=== PATIENT | male | born 1975 | race Caucasian/White ===

== ENCOUNTER → 2018-02-20 | Outpatient (REF) | payer BC, OTHER ==
[2018-02-20 14:10] LABS: APPEARANCE, URINE CLEAR (CLEAR); BACTERIA, URINE AUTO NEGATIVE (NEGATIVE); BILIRUBIN, URINE AUTO NEGATIVE (NEGATIVE); BLOOD, URINE BLOOD 1+ (NEGATIVE); COLOR, URINE YELLOW (YELLOW); GLUCOSE, URINE (UA) AUTO NEGATIVE (NEGATIVE); KETONE, URINE AUTO NEGATIVE (NEGATIVE); LEUKOCYTE ESTERASE, URINE AUTO NEGATIVE (NEGATIVE); MUCUS, URINE SMALL (NEGATIVE); NITRITE, URINE AUTO NEGATIVE (NEGATIVE); PROTEIN, URINE AUTO NEGATIVE (NEGATIVE); RBC, URINE AUTO 0 /HPF (0-3); SPECIFIC GRAVITY URINE AUTO 1.021 (1.002-1.035); SQUAMOUS EPITHELIAL CELL UR AU 0 /HPF (0-6); UROBILINOGEN, URINE AUTO 0.2 mg/dL (0.0-2.0); WBC, URINE AUTO 0 /HPF (0-3)
== END ==
LOC: M SMT 13:40
DX: R31.9 Hematuria, unspecified (principal)
CPT/HCPCS: 81001

== ENCOUNTER 2018-05-19 21:32 | Emergency (ER) | payer OTHER ==
[~2018-05-19] VITALS: Ht 195.6 cm; Wt 134.1 kg
[2018-05-19] MEDS ORDERED: LISI-542 (21:41)
[2018-05-19] MEDS ORDERED: VITA200016 PO (21:41)
[2018-05-19] MEDS ORDERED: ALLO100T (21:41)
[2018-05-19] MEDS ORDERED: NAPR-885 (21:41)
[2018-05-19] MEDS ORDERED: CITA10TA5 (21:41)
[2018-05-19] MEDS ORDERED: METF500T13 (21:41)
[2018-05-19] MEDS ORDERED: LEVO500T3 (21:41)
[2018-05-19] MEDS ORDERED: PANT40TA3 (21:41)
[2018-05-19] MEDS ORDERED: MUPI2OI (21:41)
[2018-05-19] MEDS ORDERED: NS 1,000 ML IV ONE ×2 (22:15→23:15)
[2018-05-19] MEDS ORDERED: ONDANSETRON 4MG/2ML VIAL (J2405) IV ONE (22:15)
[2018-05-19 22:25] LABS: BASO % 0.2 % (0.0-1.0); EOS # 0.1 10^3/uL (0.0-0.50); EOS % 0.9 % (0.0-3.0); HEMATOCRIT 42.7 % (42.0-52.0); HEMOGLOBIN 14.3 g/dl (13.5-17.5); LYMPH # 0.6 10^3/uL (1.5-4.5); LYMPH % 6.1 % (24.0-44.0); MEAN CORPUSCULAR HEMOGLOBIN 27.4 pg (27.0-33.0); MEAN CORPUSCULAR HGB CONC 33.5 g/dl (32.0-36.5); MEAN CORPUSCULAR VOLUME 81.8 fl (80.0-96.0); MONO # 0.5 10^3/uL (0.0-0.8); MONO % 5.8 % (0.0-5.0); NEUTROPHILS # 7.9 10^3/uL (1.8-7.7); NEUTROPHILS % 86.8 % (36.0-66.0); PLATELET COUNT, AUTOMATED 205 10^3/uL (150-450); RED BLOOD COUNT 5.22 10^6/uL (4.30-6.10); WHITE BLOOD COUNT 9.1 10^3/uL (4.0-10.0)
[2018-05-19 22:51] LABS: ALBUMIN 3.7 GM/DL (3.2-5.2); ALT/SGPT 39 U/L (12-78); BILIRUBIN,DIRECT 0.1 MG/DL (0.0-0.2); BILIRUBIN,TOTAL 0.7 MG/DL (0.2-1.0); BLOOD UREA NITROGEN 18 MG/DL (7-18); CALCIUM LEVEL 8.4 MG/DL (8.5-10.1); CARBON DIOXIDE LEVEL 24 MEQ/L (21-32); CHLORIDE LEVEL 103 MEQ/L (98-107); CREATININE FOR GFR 0.95 MG/DL (0.70-1.30); GLOMERULAR FILTRATION RATE > 60.0 (>60); GLUCOSE, FASTING 139 MG/DL (70-100); LIPASE 78 U/L (73-393); POTASSIUM SERUM 4.1 MEQ/L (3.5-5.1); SODIUM LEVEL 137 MEQ/L (136-145); TOTAL PROTEIN 7.3 GM/DL (6.4-8.2)
[2018-05-19] MEDS ORDERED: ISOVUE-370 76% 100ML VIAL (Q9967) As Ordered ONE (23:03)
[2018-05-19 23:18] LABS: C REACTIVE PROTEIN QUANTITATIV 1.57 MG/DL (0.00-0.30)
[2018-05-19 23:28] LABS: ERYTHROCYTE SEDIMENTATION RATE 11 mm/hr (0-15)
--- NOTE | 2018-05-20 00:16 | REPVR ---
EXAM: CT Abdomen With Contrast EXAM DATE/TIME: 05/19/2018 10:59 PM CLINICAL HISTORY: 42 years old, male; Pain; Abdominal pain; Generalized; Additional info: Abd pain, eval for divertic TECHNIQUE: Axial computed tomography images of the abdomen with intravenous contrast. All CT scans at this facility use at least one of these dose optimization techniques: automated exposure control; mA and/or kV adjustment per patient size (includes targeted exams where dose is matched to clinical indication); or iterative reconstruction. Coronal and sagittal reformatted images were created and reviewed. CONTRAST: 100 ml of iso administered intravenously. COMPARISON: CT ABD PELVIS W/O CONTRAST 12/25/2013 12:17 PM FINDINGS: Lower thorax: Minimal bilateral lower lobe dependent atelectasis. Liver: There is fatty infiltration of the liver. Gallbladder and bile ducts: Normal. No calcified stones. No ductal dilation. Pancreas: Normal. No ductal dilation. Spleen: Normal. No splenomegaly. Adrenals: Normal. No mass. Kidneys and ureters: Nonobstructing left renal calculi measuring up to 6 mm. There is a right renal cyst measuring 11 mm. Stomach and bowel: Normal. No obstruction. No mucosal thickening. Appendix: A normal appendix is seen. Intraperitoneal space: Unremarkable. No free air. No significant fluid collection. Bones/joints: Unremarkable.No acute fracture. No dislocation. Soft tissues: Unremarkable. Vasculature: Unremarkable. No abdominal aortic aneurysm. Lymph nodes: Unremarkable. No enlarged lymph nodes. IMPRESSION: 1. Resolution of distal left ureteral calculus and obstructive uropathy since 12/25/2013. 2. Nonobstructing left renal calculi. 3. Fatty infiltration of the liver. Electronically signed by: Jose Akers On 05/20/2018 00:15:48 AM
[2018-05-20] MEDS ORDERED: ZOFR4TAB14 PO (00:21)
[2018-05-20 00:36] VITALS: BP 124/71
== END 2018-05-20 00:38 | disposition home or self-care (01) ==
LOC: M ED 21:32
DX: A08.4 Viral intestinal infection, unspecified (principal); R74.0 Nonspecific elevation of levels of transaminase and lactic acid dehydrogenase [LDH]; E11.9 Type 2 diabetes mellitus without complications; Z88.0 Allergy status to penicillin; Z79.899 Other long term (current) drug therapy; Z79.2 Long term (current) use of antibiotics; Z79.84 Long term (current) use of oral hypoglycemic drugs; Z79.1 Long term (current) use of non-steroidal anti-inflammatories (NSAID)
CPT/HCPCS: 36415; 74160; 80048; 80076; 83605; 83690; 85025; 85652; 86140; 96374; 99284; J2405; Q9967

== ENCOUNTER → 2019-08-26 | Outpatient (CLI) | payer BC ==
[~2019-08-26] MED LIST: ALLO100T; CITA10TA5; LEVO500T3; LISI-542; METF500T13; MUPI2OI; NAPR-885; PANT40TA3; VITA200016 PO; ZOFR4TAB14 PO
== END ==
LOC: M LAB 09:21
PROVIDERS: ATTEND Urology
DX: N40.0 Benign prostatic hyperplasia without lower urinary tract symptoms (principal)
CPT/HCPCS: 36415; 84403; G0103

== ENCOUNTER → 2019-08-26 | Outpatient (CLI) | payer BC ==
--- NOTE | 2019-08-26 10:22 | REP ---
SCROTAL ULTRASOUND: Real-time sonographic evaluation of the scrotum and contents performed. Testicles are normal in size and echotexture, right testicle measuring 5.9 x 3.0 x 3.9 cm and left testicle 5.7 x 2.8 x 3.6 cm. There is no testicular mass or torsion. Blood flow is seen in each testicle with duplex Doppler evaluation. Epididymis is unremarkable bilaterally. There is no hydrocele. IMPRESSION: Negative scrotal ultrasound. Electronically Signed by Jack Kerr MD 08/26/2019 12:43 P
== END ==
LOC: M RAD 09:30
PROVIDERS: ATTEND Urology
DX: N40.0 Benign prostatic hyperplasia without lower urinary tract symptoms (principal); N50.812 Left testicular pain

== ENCOUNTER → 2020-10-06 | Outpatient (CLI) | payer BC ==
[~2020-10-06] MED LIST changes: -LISI-542; +LISI-898; +PANT40TA29; -PANT40TA3
--- NOTE | 2020-10-06 09:48 | REPPI ---
INDICATION: M79.672 PAIN IN LEFT FOOT COMPARISON: None. TECHNIQUE: AP, lateral, bilateral oblique views left foot. FINDINGS: Osseous structures and joint spaces are essentially age-appropriate and without acute fracture or dislocation. No overt osteoarthritic changes. Lateral view demonstrates small calcaneal heel spur. The soft tissues are grossly unremarkable although a 2 mm inez/foreign body underlying the mid calcaneus identified on lateral and oblique views may represent the soft tissue abnormality. IMPRESSION: Generalized age-related changes.. Lateral view cannot exclude a small 2 mm foreign body in the soft tissue underlying the calcaneus and should be correlated with point of tenderness. <Electronically signed by Fausto Taylor > 10/06/20 [id number]
== END ==
LOC: M PLAIMG 09:26
PROVIDERS: ATTEND Physician Assistant
DX: M79.672 Pain in left foot (principal)

== ENCOUNTER 2020-11-04 10:56 | Emergency (ER) | payer BC ==
[~2020-11-04] VITALS: Ht 195.6 cm; Wt 127.0 kg
[2020-11-04] MEDS ORDERED: FARX1TAB3 PO (11:21)
--- NOTE | 2020-11-04 12:12 | REP ---
INDICATION: abdominal pain COMPARISON: Comparison CT study May 19, 2018.. TECHNIQUE: Helical scanning is acquired and 3 mm axial images were reformatted. Coronal and sagittal MPR images were generated and reviewed. FINDINGS: Preliminary digital ship surveyor radiograph show an unremarkable bowel gas pattern. The lung bases are free of infiltrate. There is no evidence of pleural effusion. There are stable small subpleural subcentimeter pulmonary nodules bilaterally unchanged from the 2018 study. There is moderate diffuse fatty infiltration of the liver. Liver is not felt to be enlarged. The spleen is normal in size. No focal hepatic or splenic lesion is seen. Normal adrenal glands are seen bilaterally. No abnormality is noted within the pancreas. The gallbladder is unremarkable. There is no evidence of hydronephrosis on either side. There is an intrarenal calculus in the lower pole of the left kidney measuring 7 mm. There is no evidence of bladder or ureteral calculus. No intrarenal calculus is noted on the right. Normal caliber abdominal aorta. A normal appendix is seen in the right lower quadrant. Small and large bowel loops are unremarkable. There are scattered normal sized small bowel mesenteric lymph nodes. No evidence of gastrointestinal obstruction. Bone window settings show no bony destructive lesion. IMPRESSION: Moderate diffuse fatty infiltration of the liver. There is a nonobstructive intrarenal calculus in the lower pole left kidney which measures 7 mm. No hydronephrosis is seen. Otherwise negative. <Electronically signed by Demian Anne > 11/04/20 [id number]
[2020-11-04] MEDS ORDERED: KETOROLAC 30 MG/ML 1ML VIAL IV ONE (12:30)
[2020-11-04 12:32] LABS: BASO % 0.6 % (0.0-1.0); EOS # 0.3 10^3/uL (0.0-0.5); EOS % 4.3 % (0.0-3.0); HEMATOCRIT 45.8 % (42.0-52.0); HEMOGLOBIN 14.7 g/dl (13.5-17.5); LYMPH # 1.7 10^3/uL (1.5-5.0); LYMPH % 26.5 % (24.0-44.0); MEAN CORPUSCULAR HEMOGLOBIN 26.9 pg (27.0-33.0); MEAN CORPUSCULAR HGB CONC 32.1 g/dl (32.0-36.5); MEAN CORPUSCULAR VOLUME 83.7 fl (80.0-96.0); MONO # 0.5 10^3/uL (0.0-0.8); MONO % 8.2 % (2.0-8.0); NEUTROPHILS # 3.8 10^3/uL (1.5-8.5); NEUTROPHILS % 60.1 % (36.0-66.0); PLATELET COUNT, AUTOMATED 249 10^3/uL (150-450); RED BLOOD COUNT 5.47 10^6/uL (4.30-6.10); WHITE BLOOD COUNT 6.3 10^3/uL (4.0-10.0)
[2020-11-04] MEDS ORDERED: NS 500 ML IV ONE (13:05)
[2020-11-04] MEDS ORDERED: PERCOCET 5MG/325MG TAB PO ONE (13:30)
[2020-11-04] MEDS ORDERED: PERC5TAB12 PO (13:50)
[2020-11-04] MEDS ORDERED: METH-1164 PO (13:52)
[2020-11-04 14:18] VITALS: BP 134/77
== END 2020-11-04 14:22 | disposition home or self-care (01) ==
LOC: M ED 10:56
DX: N20.9 Urinary calculus, unspecified (principal); M54.9 Dorsalgia, unspecified; E11.9 Type 2 diabetes mellitus without complications; I10 Essential (primary) hypertension; M10.9 Gout, unspecified; Z87.442 Personal history of urinary calculi; K76.0 Fatty (change of) liver, not elsewhere classified; Z79.899 Other long term (current) drug therapy; Z88.0 Allergy status to penicillin
CPT/HCPCS: 74176; 80047; 81001; 83690; 85025; 96361; 96374; 99284; J1885

== ENCOUNTER → 2022-02-07 | Outpatient (CLI) | payer BC ==
[~2022-02-07] MED LIST changes: -CITA10TA5; +CITA10TA7; +FARX1TAB3 PO; +LEVO1TAB39; -LEVO500T3; -LISI-898; +LISI5TAB11; +METH-1164 PO; +PERC5TAB12 PO
== END ==
LOC: M LABSMTC 11:08
PROVIDERS: ATTEND Family Medicine
DX: Z20.822 Contact with and (suspected) exposure to COVID-19 (principal)
CPT/HCPCS: 87635; C9803

== ENCOUNTER → 2023-06-27 | Outpatient (REF) | payer BC ==
[~2023-06-27] MED LIST changes: -ALLO100T; +ALLO100T PO; +CITA20TA6 PO; +GABA-1171 PO; -LISI5TAB11; +LISI5TAB11 PO; -PANT40TA29; +PANT40TA29 PO; +ROSU10TA6 PO; +VITA100093 PO
== END ==
LOC: M LAB REF 11:52
PROVIDERS: ATTEND Physician Assistant
DX: B34.9 Viral infection, unspecified (principal)

== ENCOUNTER → 2024-03-02 | Outpatient (CLI) | payer BC ==
[~2024-03-02] MED LIST changes: -ROSU10TA6 PO; +ROSU10TA61 PO
[2024-03-02 08:42] LABS: HEMATOCRIT 41.8 % (42.0-52.0); HEMOGLOBIN 13.6 g/dl (13.5-17.5); MEAN CORPUSCULAR HEMOGLOBIN 27.9 pg (27.0-33.0); MEAN CORPUSCULAR HGB CONC 32.5 g/dl (32.0-36.5); MEAN CORPUSCULAR VOLUME 85.7 fl (80.0-96.0); PLATELET COUNT, AUTOMATED 192 10^3/uL (150-450); RED BLOOD COUNT 4.88 10^6/uL (4.30-6.10); WHITE BLOOD COUNT 4.1 10^3/uL (4.0-10.0)
[2024-03-02 08:50] LABS: HEMOGLOBIN A1c 6.7 % (4.0-6.0)
[2024-03-02 09:13] LABS: ALBUMIN 3.8 G/DL (3.2-5.2); ALKALINE PHOSPHATASE 59 U/L (46-116); ALT/SGPT 33 U/L (7.0-40); AST/SGOT 11 U/L (<34); BILIRUBIN,TOTAL 0.3 MG/DL (0.3-1.2); BLOOD UREA NITROGEN 14 MG/DL (9-23); CALCIUM LEVEL 9.4 MG/DL (8.5-10.1); CARBON DIOXIDE LEVEL 31 MMOL/L (20-31); CHLORIDE LEVEL 105 MMOL/L (98-107); CHOLESTEROL LEVEL 168 MG/DL (<200); CHOLESTEROL RISK RATIO 4.94 (<5); GLOMERULAR FILTRATION RATE > 60.0 (>60); GLUCOSE, FASTING 122 MG/DL (60-100); LDL CHOLESTEROL 96.6 MG/DL (<100); POTASSIUM SERUM 4.2 MMOL/L (3.5-5.1); SODIUM LEVEL 140 MMOL/L (136-145); TOTAL PROTEIN 6.9 G/DL (5.7-8.2); TRIGLYCERIDES LEVEL 187 MG/DL (<150)
[2024-03-02 09:16] LABS: URIC ACID 5.9 MG/DL (3.7-9.2)
== END ==
LOC: M LAB 07:53
PROVIDERS: ATTEND Physician Assistant
DX: E11.9 Type 2 diabetes mellitus without complications (principal)

== ENCOUNTER → 2025-01-07 | Outpatient (CLI) | payer BC ==
[2025-01-07 10:56] LABS: PLATELET COUNT, AUTOMATED 221 10^3/uL (150-450)
[2025-01-07 10:58] LABS: APPEARANCE, URINE HAZY (CLEAR); BACTERIA, URINE AUTO NEGATIVE (NEGATIVE); BILIRUBIN, URINE AUTO NEGATIVE (NEGATIVE); BLOOD, URINE BLOOD 3+ (NEGATIVE); GLUCOSE, URINE (UA) AUTO NEGATIVE (NEGATIVE); KETONE, URINE AUTO NEGATIVE (NEGATIVE); LEUKOCYTE ESTERASE, URINE AUTO NEGATIVE (NEGATIVE); MUCUS, URINE SMALL (NEGATIVE); NITRITE, URINE AUTO NEGATIVE (NEGATIVE); PROTEIN, URINE AUTO NEGATIVE (NEGATIVE); RBC, URINE AUTO 56 /HPF (0-3); SPECIFIC GRAVITY URINE AUTO 1.027 (1.002-1.035); SQUAMOUS EPITHELIAL CELL UR AU 0 /HPF (0-6); UROBILINOGEN, URINE AUTO 0.2 mg/dL (0.0-2.0); WBC, URINE AUTO 0 /HPF (0-3)
[2025-01-07 11:15] LABS: ESTIMATED AVERAGE GLUCOSE 120.0 MG/DL (60-110)
[2025-01-07 11:31] LABS: PROSTATIC SPECIFIC AG MONITOR 0.54 NG/ML (< 4.00)
[2025-01-07 11:32] LABS: ALT/SGPT 25 U/L (7.0-40); AST/SGOT 17 U/L (<34); CALCIUM LEVEL 9.1 MG/DL (8.5-10.1); CARBON DIOXIDE LEVEL 30 MMOL/L (20-31); CHLORIDE LEVEL 106 MMOL/L (98-107); CHOLESTEROL LEVEL 142 MG/DL (<200); CHOLESTEROL RISK RATIO 4.26 (<5); CREATININE FOR GFR 0.81 MG/DL (0.70-1.30); GLOMERULAR FILTRATION RATE > 90.0 (>56); LDL CHOLESTEROL 81.5 MG/DL (<100); NON-HDL-C 108.7 MG/DL; POTASSIUM SERUM 4.8 MMOL/L (3.5-5.1); SODIUM LEVEL 144 MMOL/L (136-145); TRIGLYCERIDES LEVEL 136 MG/DL (<150)
== END ==
LOC: M LAB 09:51
PROVIDERS: ATTEND Physician Assistant
DX: E11.9 Type 2 diabetes mellitus without complications (principal); I10 Essential (primary) hypertension; E78.2 Mixed hyperlipidemia; R35.1 Nocturia

== ENCOUNTER → 2025-03-24 | Outpatient (CLI) | payer BC ==
[~2025-03-24] MED LIST changes: -ROSU10TA61 PO; +ROSU10TA90 PO
== END ==
LOC: M WUC 10:27
PROVIDERS: ATTEND Physician Assistant
DX: S23.41XA Sprain of ribs, initial encounter (principal); X58.XXXA Exposure to other specified factors, initial encounter; Y92.9 Unspecified place or not applicable; Y93.9 Activity, unspecified; Y99.9 Unspecified external cause status

== ENCOUNTER → 2025-05-16 | Outpatient (REF) | payer BC ==
[2025-05-16 12:01] LABS: ESTIMATED AVERAGE GLUCOSE 120.0 MG/DL (60-110)
== END ==
LOC: M LAB REF 10:08 → M LABDRAWP 10:08
PROVIDERS: ATTEND Physician Assistant
DX: E11.9 Type 2 diabetes mellitus without complications (principal)